=== PATIENT | female | born 1945 | race Caucasian/White ===

== ENCOUNTER 2018-12-05 16:32 | Emergency (ER) | payer BC ==
[2018-12-05 16:43] VITALS: BP 160/70; PULSE 102; TEMP 97.3; BMI 21.2
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
[2018-12-05] MEDS ORDERED: ACETAMINOPHEN 500 MG TABLET (FP) PO ONE (17:10)
[2018-12-05] MEDS ORDERED: ACETAMINOPHEN 500 MG TABLET (FP) ONE (18:03)
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
== END 2018-12-05 18:30 | disposition home or self-care (01) ==
LOC: FER 16:32
DX: M79.641 Pain in right hand (principal); Y04.2XXA Assault by strike against or bumped into by another person, initial encounter; Y93.9 Activity, unspecified; Y92.9 Unspecified place or not applicable
CPT/HCPCS: 73110-TC-RT-FY; 73130-TC-RT-FY; 73590-TC-RT-FY; 73630-TC-RT-FY; 99282-25